=== PATIENT | male | born 1990 | race Two or more races ===

== ENCOUNTER 2024-02-17 22:07 | Emergency (ER) | payer OTHER ==
[~2024-02-17] VITALS: Ht 182.9 cm; Wt 90.7 kg
== END 2024-02-17 23:00 | disposition home or self-care (01) ==
LOC: ER 22:07
DX: M79.641 Pain in right hand (principal); M79.675 Pain in left toe(s); V89.2XXA Person injured in unspecified motor-vehicle accident, traffic, initial encounter
CPT/HCPCS: 29125; 73100; 73620; 99283-25